=== PATIENT | male | born 1935 | race Caucasian/White ===

== ENCOUNTER 2018-04-14 11:56 | Outpatient (CLI) | payer MEDICARE, SELFPAY ==
--- NOTE | 2018-04-14 11:25 | DI.RAD_ITS ---
SYMPTOMS/DIAGNOSIS: COUGH, H/O ASTHMA, R05 CHEST X-RAY, PA AND LATERAL: Comparison is 04/06/13. The heart size and pulmonary vasculature are within normal limits. The lungs are clear and well expanded. No effusions or pneumothoraces are identified. Degenerative changes are seen in the spine. IMPRESSION: No acute pulmonary process.
== END 2018-04-14 12:16 ==
PROVIDERS: PCP Internal Medicine; Visit Provider Internal Medicine
DX: R05 Cough (principal); Z87.09 Personal history of other diseases of the respiratory system
CPT/HCPCS: 71046

== ENCOUNTER 2018-05-01 01:53 | Outpatient (CLI) | payer MEDICARE, SELFPAY ==
--- NOTE | 2018-05-01 | PFT_ITS ---
PULMONARY FUNCTION TEST REPORT Patient identification [facility] [place] DATE OF 1935 DATE OF SERVICE 05/01/2018 REQUESTING PROVIDER Rudy Kapadia M.D. INTERPRETATION OF STUDY Spirometry shows mild obstructive airways disease with significant bronchodilator response. LUNG VOLUMES - Lung volumes show no evidence of restriction. DIFFUSION CAPACITY- Mildly reduced even when corrected to alveolar volume. AIRWAY RESISTANCE - Normal. IMPRESSION Mild obstructive airways disease with significant bronchodilator response. This is associated with mild diffusion defect. It is noteworthy that the pre bronchodilator expiratory effort was poor. When this study was compared to previous one from 09/15/2013, the patient has a 180 cc improvement in FVC and stable FEV1. Jessica Melo M.D. MOUNA/reji T 05/07/2018
[2018-05-01] MEDS: Inhaler, Assist Device 1 EACH MC (13:45)
[2018-05-01] MEDS: Albuterol HFA 18 GM 200 PUFF INH IH (13:46)
== END 2018-05-01 02:13 ==
PROVIDERS: PCP Internal Medicine; Visit Provider Internal Medicine
DX: R05 Cough (principal); J45.909 Unspecified asthma, uncomplicated
CPT/HCPCS: 94060; 94150; 94726; 94729

== ENCOUNTER 2020-08-15 15:46 | Outpatient (REF) | payer MEDICARE, SELFPAY ==
[2020-08-15 20:52] LABS: NT-proBNP 114 pg/mL (<300)
== END 2020-08-15 15:47 | disposition home or self-care (01) ==
LOC: NCHCN 15:46
PROVIDERS: PCP Internal Medicine; Visit Provider Internal Medicine
DX: R06.09 Other forms of dyspnea (principal)
CPT/HCPCS: 83880

== ENCOUNTER 2021-10-08 17:50 | Outpatient (REF) | payer MEDICARE, SELFPAY ==
[2021-10-08 16:49] LABS: Abs Immature Grans 0.06 10^3/uL (0.0-0.06); Absolute Basophil Count 0.02 10^3/uL (0.0-0.2); Absolute Eosinophil Count 0.16 10^3/uL (0.0-0.7); Absolute Lymphocyte Count 0.95 10^3/uL (1.2-3.4); Absolute Monocyte Count 0.96 10^3/uL (0.1-0.8); Absolute Neutrophil Count 5.84 10^3/uL (1.2-6.7); Basophils % 0.3; HCT 34.9 % (40.0-50.0); HGB 11.1 g/dL (13.5-17.5); Immature Grans % 0.8; Lymphocytes % 11.9; MCHC 31.8 % (32.0-36.0); MCV 98 fL (80-95); MPV 9.5 fL (8.0-11.0); Platelet Count 217 10^3/uL (130-400); RBC 3.58 10^6/uL (4.36-5.78); RDW 13.6 % (11.8-14.1); WBC 7.99 10^3/uL (4.4-10.8)
[2021-10-08 16:54] LABS: Anion Gap 11.1 mmol/L (3-11); BUN 20 mg/dL (7-18); CO2 25.9 mmol/L (21.0-32.0); Calcium 8.3 mg/dL (8.5-10.1); Chloride 106 mmol/L (98-107); Glucose 95 mg/dL (74-106); NT-proBNP 2604 pg/mL (<300); Potassium 4.2 mmol/L (3.5-5.1); Sodium 143 mmol/L (136-145)
[2021-10-08 17:06] LABS: Calculated LDL 59 mg/dL (<100); Cholesterol 108 mg/dL (<200); HDL Cholesterol 34 mg/dL (40-60); Triglyceride 75 mg/dL (<150)
== END 2021-10-08 17:51 | disposition home or self-care (01) ==
LOC: NCHCN 17:50
PROVIDERS: PCP Internal Medicine; Visit Provider Family Medicine
DX: I50.9 Heart failure, unspecified (principal)
CPT/HCPCS: 80048; 80061; 83880; 85025

== ENCOUNTER 2023-12-16 13:34 | Outpatient (REF) | payer MEDICARE, SELFPAY ==
--- OUTSIDE RECORDS SUMMARY | 2023-12-16 13:37 | XMS_ITS | Clinical Summary ---
Author Organization [facility] Address [address] [place] [address] Care Team Providers Care Pbx Wire Chief Name Role Phone Rudy Kapadia MD Primary Care Provider [phone] Social History Tobacco Use Types Packs/Day Years Used Date Smoking Tobacco: Never Assessed Sex and Gender Information Value Date Recorded Sex Assigned at Not on file Gender Identity Not on file Sexual Orientation Not on file Plan of Treatment Health Maintenance Due Date Last Done Comments RSV Immunization ( o r 60+ Years) (1 - 1-dose 60+ series) 1997 Fall Risk Screening 2002 COVID-19 Vaccine (2022- season) 2022 Care Teams Pbx Wire Chief Relationship Specialty Start Date End Date Rudy Kapadia MD [address] [place] [id number] PCP - General 08/26/11
--- OUTSIDE RECORDS SUMMARY | 2023-12-16 13:37 | XMS_ITS | Data Portability ---
Author Organization [facility] Address [place] [address] Assessment No assessment recorded. Plan of Treatment Reminders Order Date Submit Date Provider Last Modified By Organization Details Last Modified Time Details Appointments Follow Up 2023 12:10P M Not available Not available Not available Office Visit 2024 11:50A M Not available Not available Not available Lab None recorded. Referral None recorded. Procedures None recorded. Surgeries None recorded. Imaging None recorded. Medication Orders furosemid e 40 mg tablet 2022 023 [facility] [address] [place], [address], 02/24/2023 15:44:02 metoprolo l succinate ER 25 mg tablet,ex tended release 24 hr 2022 023 [facility] [address], [address] [place], [address], 02/24/2023 10:48:29 valacyclo vir 1 gram tablet 2023 024 [facility] [address], [address] [place], [address], 12/16/2023 11:49:40 Augmentin 875 mg-125 mg tablet [email or web address] [place] [address] Pharmacy [address] [place], [address], 06/11/2023 14:39:12 Patient TargetsNo targets recorded. Patient InstructionsNo instructions recorded. Reason for Referral None Reported. Results Created Date Observation Date Name Description Value Unit Range Abnormal Flag Note LastModifiedBy Organization Detail LastModifiedTime 12/08/1904/14/2018 imagi ng/di agnos tic resul t No observ ation record ed. Not Available 12/07 00:16:23 12/08/19 24 05/21/2022 imagi ng/di agnos tic resul t No observ ation record ed. Not Available 12/07 00:16:24 12/08/19 24 12/11/2021 imagi ng/di agnos tic resul t No observ ation record ed. Not Available 12/07 00:17:41 12/08/19 24 03/11/2022 imagi ng/di agnos tic resul t No observ ation record ed. Not Available 12/07 00:17:46 12/08/19 24 09/21/2021 imagi ng/di agnos tic resul t No observ ation record ed. Not Available 12/07 00:17:51 12/08/19 24 09/13/2020 US, sully x, suellen s, nilam rodriguezy No observ ation record ed. Not Available 12/07 00:18:38 12/08/19 24 09/14/2022 XR, wrist No observ ation record ed. Not Available 12/07 00:18:39 12/08/19 24 01/02/2022 XR, chest No observ ation record ed. Not Available 12/07 00:18:40 12/08/19 24 05/21/2022 CT, abdom en + pelvi s No observ ation record ed. Not Available 12/07 00:18:42 Result Notes None recorded. Problems Name Problem SNOMED Code Status Onset Date Resolution Date Notes Provider Name and Address Organization Details Recorded Time Osteoart hritis of knee 105979777 [facility] Sleep apnea 22467469 Active 2008 [facility] 4 17:54:48 Atherosc lerosis of coronary artery without angina pectoris 13860229932 4103 Active 2004 NSTEMI 10/12 DEBBIE COLLINS MD [address], [place], [address] , [facility] 3 15:35:47 Mantle cell lymphoma 451925826 Active 2011 [facility] monitori MD [address], [place], [address] , [facility] 4 11:51:11 Open-ang le glaucoma 87223556 Active 2013 Trabecul [facility]plasty 07[facility]05 [facility] 4 17:56[facility]24 Traumati c or non-trau matic injury 903487173 Completed 201410/24/2014 Problem Code: T14.8; Problem Code Type: ICD-10; Not Available [facility] 3 04:17:00 Bilatera l hearing loss 10478992 Active 2015 [facility] 4 17:53:55 Benign prostati c hyperpla rc 923430211 Active 2017 [facility] 4 17:53:42 Insect bite Completed 202011/11/2020 Not Available [facility] 3 04:17:01 General examinat ion of patient Active 2020 [facility] 4 17:55:08 Chronic diastoli c heart failure 133018583 Active 2021 [facility] 4 17:55:29 Hypertro phic conditio n of skin 33322390 Completed 202101/06/2022 Problem Code: L91.8; Problem Code Type: ICD-10; Not Available [facility] 3 04:17:01 Gastroes ophageal reflux disease without esophagi tis 831320337 Active 2021 [facility] 4 17:55:14 Prosthet ic heart valve in situ 193657566 Active 2022 tissue for [facility] 4 17:57:10 Dysphagi a 18215743 Active 2022 [facility] 4 17:55:21 Hyperlip idemia 12555712 Active 2022 [facility] 4 17:55:03 Spinal stenosis of lumbar region 15157052 Active 2022 [facility] 4 17:57:40 Hip joint prosthes is present 485084262 Active 2022 [facility] 4 17:55:39 Uncompli cated mild persiste nt asthma 253730572 Completed 201811/30/2019 Problem Code: J45.30; Problem Code Type: ICD-10; Not Available [facility] 3 04:17:02 Pain of left lower leg 47602877768 9101 Completed 202012/01/2020 Problem Code: M79.662; Problem Code Type: ICD-10; Not Available [facility] 3 04:17:03 History of musculos keletal disease 255455334 Completed 201512/01/2020 Not Available [facility] 3 04:17:03 Long-ter m current use of antibiot ic 120118465 Completed 201010/26/2021 Problem Code: Z79.2; Problem Code Type: ICD-10; Not Available [facility] 3 04:17:03 Epidermo id cyst of skin 095654301 Completed 201910/26/2021 Problem Code: L72.3; Problem Code Type: ICD-10; Not Available [facility] 3 04:17:03 Methicil kathryn resistan t Staphylo coccus aureus infectio n 526980076 Completed 200510/21/2016 Problem Code: 041.12; Problem Code Type: ICD-9; Not Available [facility] 3 04:17:03 Diarrhea 77660829 Completed 201811/30/2019 Problem Code: R19.7; Problem Code Type: ICD-10; Not Available [facility] 3 04:17:04 Benign prostati c hyperpla rc 755770193 Completed 200412/18/2022 [facility] 4 17:53:42 Epidermo id cyst 889164100 Completed 202107/22/2022 Problem Code: L72.0; Problem Code Type: ICD-10; Not Available [facility] 3 04:17:04 Pain of right shoulder joint 33494157675 422386 Completed 201411/20/2017 Problem Code: M25.511; Problem Code Type: ICD-10; Not Available [facility] 3 04:17:04 Osteoart hritis 625443930 Completed 200412/18/2022 Not Available [facility] 3 04:17:04 Rupture of rotator cuff of right shoulder 35670225802 583483 Completed 201510/26/2021 Problem Code: M75.101; Problem Code Type: ICD-10; Not Available [facility] 3 04:17:05 Benign neoplasm of colon 66234866 Completed 201312/18/2022 Problem Code: D12.6; Problem Code Type: ICD-10; Not Available [facility] 3 04:17:05 History of polyp of colon 804173449 Completed 201312/07/2021 Problem Code: Z86.010; Problem Code Type: ICD-10; Not Available [facility] 3 04:17:05 Shoulder joint pain 094655298 Completed 201412/18/2022 Problem Code: 719.41; Problem Code Type: ICD-9; Not Available [facility] 3 04:17:05 Screenin g for hearing loss Completed 202012/01/2020 Not Available [facility] 3 04:17:06 Cough 58597948 Completed 201811/24/2018 Problem Code: R05; Problem Code Type: ICD-10; Not Available [facility] 3 04:17:06 Allergic contact dermatit is caused by plant material 13277252319 055510 Completed 201411/03/2014 Problem Code: L23.7; Problem Code Type: ICD-10; Not Available [facility] 3 04:17:07 Carpal tunnel syndrome of left wrist 86137058371 9102 Completed 201507/22/2022 Problem Code: G56.02; Problem Code Type: ICD-10; Not Available [facility] 3 04:17:07 Dyspnea 836374561 Completed 202012/01/2020 Problem Code: R06.09; Problem Code Type: ICD-10; Not Available [facility] 3 04:17:08 Hip joint prosthes is present 787025631 Completed 202107/22/2022 Problem Code: Z96.642; Problem Code Type: ICD-10; [facility] 4 17:55:40 Idiopath ic peripher al neuropat hy 85253490 Completed 201212/18/2022 Problem Code: 356.9; Problem Code Type: ICD-9; Not Available [facility] 3 04:17:08 Fitting of hearing aid Completed 202012/01/2020 Problem Code: Z46.1; Problem Code Type: ICD-10; Not Available [facility] 3 04:17:08 Pre-surg keri evaluati on Completed 201911/30/2019 Problem Code: Z01.818; Problem Code Type: ICD-10; Not Available [facility] 3 04:17:09 Cholelit hiasis without obstruct ion 05764364 Completed 202107/22/2022 Problem Code: K80.20; Problem Code Type: ICD-10; Not Available [facility] 3 04:17:09 Coronary arterios clerosis in [place] artery 79804220898 07 Completed 200412/18/2022 Problem Code: 414.01; Problem Code Type: ICD-9; Not Available [facility] 3 04:17:09 Bilatera l myopia of eyes 06107518656 9109 Completed 202207/22/2022 Problem Code: H52.13; Problem Code Type: ICD-10; Not Available [facility] 3 04:17:10 Heart failure 40151705 Completed 202112/18/2022 Problem Code: I50.9; Problem Code Type: ICD-10; Not Available [facility] 3 04:17:10 Impacted cerumen of bilatera l ears 95199389987 63312 Completed 202012/01/2020 Problem Code: H61.23; Problem Code Type: ICD-10; Not Available [facility] 3 04:17:10 Localize d edema 468598558 Completed 202012/01/2020 Problem Code: R60.0; Problem Code Type: ICD-10; Not Available [facility] 3 04:17:11 Idiopath ic osteoart hritis 045481183 Completed 201510/26/2021 Problem Code: M19.019; Problem Code Type: ICD-10; Not Available [facility] 3 04:17:11 Mixed hyperlip idemia 954250668 Active [address], [place] [address] , [facility] 3 15:33:40 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 left infraorb ial MD [address], [place] [address] , [facility] 4 22:51:32 Facial erysipel as 588787644 Completed 202306/15/2023 left infraorb ital MD [address], [place] [address] , [facility] 4 22:52:37 Facial erysipel as 045774718 Completed 202306/15/[address], [place] [address] , [facility] 4 22:52:37 Iron deficien cy anemia 81035811 Active [address], [place] [address] , [facility] 12:01:39 Problem Notes None recorded. Procedures Surgical History None recorded. Imaging Results Imaging Date Name Status LastModified by Organiz ation Details LastModified Time 04/14/2018 imaging/diagno stic result completed Information not available 12/08/2023 00:16:23 05/21/2022 imaging/diagno stic result completed Information not available 12/08/2023 00:16:24 12/11/2021 imaging/diagno stic result completed Information not available 12/08/2023 00:17:41 03/11/2022 imaging/diagno stic result completed Information not available 12/08/2023 00:17:46 09/21/2021 imaging/diagno stic result completed Information not available 12/08/2023 00:17:51 09/13/2020 US, duplex, venous, extremity completed Information not available 12/08/2023 00:18:38 09/14/2022 XR, wrist completed Information no t available 12/08/2023 00:18:39 01/02/2022 XR, chest completed Information no t available 12/08/2023 00:18:40 05/21/2022 CT, abdomen + pelvis completed Information not available 12/08/2023 00:18:42 Procedure Notes None recorded. Medical Equipment None Reported. Allergies Allergen ID Allergen Name Allergen Category Reaction Reaction Severity Criticality Documentation Date Start Date Code Code System Note Provider Name and Address Organization Details Recorded Time 87686 Rifadin medicatio n other severe Not available 06/04/20232005 11500 3 RxNorm if used with vanco mycin Kunal [facility] 17:52:20 52708 vancomyci n medicatio n other severe Not available 06/04/20232004 92996 RxNorm if used w/rif ampin , dostr oys WBC's and paren t cells [facility] 17:53[facility]01 Medications Name Sig Start Date Stop Date Status Note LastModified by Organization Details LastModified Time Prescript ion - Renewal active refill Not Available Not Available Not Available amoxicill in 500 mg capsule 4 capsule by mouth single dose as needed for Dental Procedur es active Not Available Not Available No t Available furosemid e 40 mg tablet TAKE 1 TABLET BY MOUTH ONCE DAILY IN THE MORNING active Not Available Not Available No t Available latanopro st 0.005 % eye drops 10/21 completed outside provider Not Available Not Available Not Available Miralax 17 gram/dose oral powder 1 capful as needed for constipa tion in 4-8 ounces of fluid. 10/[address] [facility] Discharg e summary Not Available Not Available Not Available atorvasta tin 80 mg tablet Take 1 tablet by mouth once a day 11/26 completed Not Available Not Available Not Available acetamino phen 325 mg tablet Take 650 mg every 4 hours by mouth as needed 07/16 completed Not Available Not Available Not Available Protonix 40 mg tablet,de layed release Take 1 tablet by mouth once a day 02/24 completed Not Available Not Available Not Available doxycycli ne hyclate 100 mg capsule Take 1 capsule by mouth once a day 02/24 completed Not Available Not Available Not Available atorvasta tin 10 mg tablet take 1/2 tablet daily active Not Available Not Available No t Available azithromy aurora 250 mg tablet TAB daily 06/19 completed Not Available Not Available Not Available amiodaron e 200 mg tablet 1 tablet by mouth twice a day 01/01 completed Not Available Not Available Not Available valacyclo vir 1 gram tablet Take 1 tablet every 12 hours by oral route for 5 days. 12/15 completed Not Available Not Available Not Available Flonase 50 mcg/DOSE nasal inhaler 2 SPRAY QD 10/16 completed Not Available Not Available Not Available cyanocoba sunil (vit B-12) 1,000 mcg tablet take 1 tablet by mouth once daily active Not Available Not Available No t Available clopidogr el 75 mg tablet Take 1 tablet by mouth once a day Take 1 tablet by mouth daily 12/04 completed Not Available Not Available Not Available acyclovir 400 mg tablet 1 tab twice daily 05/01 completed Not Available Not Available Not Available Zyvox 100 mg/5 mL oral suspensio n Infuse 600 mg every 12 hours by IV route 10/08 completed Not Available Not Available Not Available Tessalon Perles 100 mg capsule 1 CAP three times daily 05/07 completed Not Available Not Available Not Available potassium chloride ER 20 mEq tablet,ex tended release(p art/cryst ) 1 tablet by mouth once a day active Not Available Not Available No t Available calcium 500 mg (as calcium carbonate 1,250 mg) tablet Take 1 tablet by mouth daily active Not Available Not Available No t Available tamsulosi n 0.4 mg capsule 1 capsule by mouth once a day active Not Available Not Available No t Available Tums Ultra 400 mg (as calcium carbonate 1,000 mg) chewable tablet 1 daily 05/24 completed Not Available Not Available Not Available Mag 64 64 mg tablet,de layed release take 1 tablet by mouth once daily active Not Available Not Available No t Available metoprolo l tartrate 50 mg tablet Take half a tablet every 6 hours active Not Available Not Available No t Available docusate sodium 100 mg capsule Take 1 tablet by mouth twice daily as needed 10/08 completed Not Available Not Available Not Available gabapenti n 300 mg capsule 1 by mouth once a day for nerve pain 12/[address] [facility] discharg e summary Not Available Not Available Not Available folic acid 1 mg tablet 1 by mouth once a day active per [facility] Discharg e summary Not Available Not Available Not Available allopurin ol 300 mg tablet 1 tab daily 10/19 completed Not Available Not Available Not Available bisacodyl 5 mg tablet,de layed release Take 1 tablet by mouth once daily as needed 10/08 completed Not Available Not Available Not Available aspirin 81 mg tablet 1tab daily 2012 active Not Available Not Available Not Avai lable furosemid e 20 mg tablet 1 tablet by mouth once a day for 14 days per [facility] Summary 07/22 completed Not Available Not Available Not Available metoprolo l succinate ER 25 mg tablet,ex tended release 24 hr TAKE 1/2 (ONE-ROSSANA F) TABLET BY MOUTH TWICE DAILY active Not Available Not Available No t Available Ativan 0.5 mg tablet 1-2 tabs q4h 10/16 completed Not Available Not Available Not Available levofloxa aurora 750 mg tablet 1 tab daily 10/19 completed Not Available Not Available Not Available timolol maleate 0.5 % eye drops 10/21 completed outside provider Not Available Not Available Not Available ondansetr on 4 mg disintegr ating tablet 1 tablet every 8 hours as needed 10/08 completed Not Available Not Available Not Available lisinopri l 2.5 mg tablet Take 1 tablet by mouth once a day 1 tablet by mouth daily 12/04 completed Not Available Not Available Not Available Diflucan 200 mg tablet 1 tab daily 10/19 completed Not Available Not Available Not Available doxycycli ne hyclate 100 mg tablet 1 cap qd 04/05 completed Not Available Not Available Not Available finasteri de 5 mg tablet TAKE 1 TABLET BY MOUTH AT NIGHT active Not Available Not Available No t Available brimonidi ne 0.15 % eye drops 1 drop twice daily 10/21 completed outside provider Not Available Not Available Not Available loratadin e 10 mg tablet 1 qd 10/16 completed Not Available Not Available Not Available amoxicill in 875 mg-potass ium clavulana te 125 mg tablet Take 1 tablet every 12 hours by oral route for 7 days. 06/10 completed Not Available Not Available Not Available Adult Low Dose Aspirin 81 mg tablet,de layed release 2012 active Not Available Not Available Not Avai lable calcium-m agnesium tablet qd 2016 active Not Available Not Available Not Avai lable Glucosami ne-Chondr otin 250 mg-200 mg tablet 2 tabs daily 2011 active Not Available Not Available Not Avai lable Vitamin D3 25 mcg (1,000 unit) capsule 1 once a [address] [facility] discharg e summary Not Available Not Available Not Available potassium chloride ER 10 mEq tablet,ex tended release(p art/cryst ) take 1 tablet by mouth once daily 02/24 completed Not Available Not Available Not Available metoprolo l tartrate 25 mg tablet take 1 tablet by mouth twice a day 02/24 completed Not Available Not Available Not Available Albuterol Sulfate HFA 90 mcg/Actua tion aerosol inhaler 2 PUFFS Q 4-6 hours 11/03 completed Not Available Not Available Not Available Flovent HFA 110 mcg/actua tion aerosol inhaler 2 PUFFS twice daily 12/13 completed Not Available Not Available Not Available Folgard RX 2.2 mg-25 mg-1 mg tablet 1 daily 2010 active Not Available Not Available Not Avai lable Tylenol-C odeine #3 1TAB every six hours 04/11 completed Not Available Not Available Not Available Calcium/M agnesium/ Zinc 1 tab daily 04/10 completed Not Available Not Available Not Available Advair HFA 115 mcg-21 mcg/actua tion aerosol inhaler Inhale 2 puffs by mouth twice daily 11/24 completed Not Available Not Available Not Available cholecalc iferol (vitamin D3) 25 mcg (1,000 unit) tablet 1 tablet by mouth once a day 2011 active Not Available Not Available Not Avai lable Symbicort 160 mcg-4.5 mcg/actua tion HFA aerosol inhaler 1 inh BID 04/10 completed Not Available Not Available Not Available FeroSul 325 mg (65 mg iron) tablet take 1 tablet by mouth once daily active Not Available Not Available No t Available omeprazol e 20 mg tablet,de layed release 1 qd 03/08 completed Not Available Not Available Not Available glucosami ne-msm-ch ondroit-h rb 149-hyalu r 500 mg-500 mg-66.7 mg tablet 2 tabs daily 2011 active Not Available Not Available Not Avai lable Guaifenes in AC 10 mg-100 mg/5 mL oral syrup 1-2 tsp q 4-6 hours 09/13 completed Not Available Not Available Not Available Gio-Mag 1 tablet PO QD 2016 active Not Available Not Available Not Avai lable glucosami ne 750 mg-chondr oitin-msm no1 625 mg-C 30 mg-mello 1 mg tablet 2 tablet once a day 10/02 completed Not Available Not Available Not Available Centrum Silver 400 mcg-250 mcg chewable tablet 1 tablet once a day active Not Available Not Available No t Available magnesium 400 mg (as magnesium oxide) capsule 1 tab daily 10/21 completed Not Available Not Available Not Available multivita min with folic acid 400 mcg tablet 1 tablet by mouth once a day 01/01 completed Not Available Not Available Not Available Eliquis 2.5 mg tablet 1 by mouth twice a day 09/13 completed s/p tissue MVR and AVR replacem ent on 08/2022 until 12/20/22 Not Available Not Available Not Available Jardiance 10 mg tablet 1 once a day 09/13 completed [facility] cardiol Not Available Not Available Not Available Gio-Mag Complex 1 tablet by mouth once a day 10/02 completed Not Available Not Available Not Available Vitals Date Recorded Body height Body mass index (BMI) Body weight Body temperature Systolic blood pressure Diastolic blood pressure Provider Name and Address Organization Details Last Updated DateTime 3 177.165 cm 25.9 kg/m2 33564.0 3 g 97.1 [degF] 124 mm[Hg] 80 mm[Hg] [facility] 3 10:10:45 Date Recorded Body height Body temperature Heart rate Oxygen saturation Oxygen saturation in Arterial blood by Pulse oximetry Systolic blood pressure Diastolic blood pressure Provider Name and Address Organization Details Last Updated DateTime 4 177.165 cm 98 [degF] 70 /min 97 % 97 % 110 mm[Hg] 70 mm[Hg] [facility] 4 13:42:39 Date Recorded Body height Body mass index (BMI) Body weight Body temperature Oxygen saturation Oxygen saturation in Arterial blood by Pulse oximetry Heart rate Systolic blood pressure Diastolic blood pressure Provider Name and Address Organization Details Last Updated DateTime 4 177.165 cm 25.6 kg/m2 89331.8 5 g 97.1 [degF] 97 % 97 % 74 /min 126 mm[Hg] 82 mm[Hg] [facility] 14:42:34 Date Recorded Body height Body mass index (BMI) Body weight Body temperature Oxygen saturation Oxygen saturation in Arterial blood by Pulse oximetry Heart rate Systolic blood pressure Diastolic blood pressure Provider Name and Address Organization Details Last Updated DateTime 177.17 cm 26.4 kg/m2 05926.4 g 98 [degF] 98 % 98 % 74 /min 136 mm[Hg] 78 mm[Hg] THIAGO SOFIA MA [facility] 11:21:55 Social History Question Answer Notes LastModified by Organizat ion Details LastModified Time Tobacco Smoking Status Never Smoker [facility] 12/16/2023 13:32:13 What Was The Date Of Your Most Recent Tobacco Screening? 12/16/2023 Information not available 12/16/2023 Has Tobacco Cessation Counseling Been Provided? No Information not available 12/16/2023 Do You Or Have You Ever Used Any Other Forms Of Tobacco Or Nicotine? No Information not available 12/16/2023 Sex: Male Functional Status None recorded. Mental Status None recorded. Family History Relationship Description Onset Age of this Age Resolved Age Notes LastModified by Organization Details LastModified Time Maternal Grandfather Family history of Arthritis linpui.[email or web address] Not available 2022 04:00:50 Notes:*Problem: father decea sed age 50 CAD. Mother age 27 blood poisoning. *Procedure Description: Family History of Coronary Heart Disease*Relative: Father Medical History No medical history recorded. Immunizations Vaccine Type Date Status Provider Name and Address Organization Details Recorded Time COVID-19, mRNA, LNP-S, PF, lilly-sucrose, 30 mcg/0.3 mL 12/16/2023 completed [facility] 12/16/2023 13:30:18 Influenza, high-dose, quadrivalent, PF 02/24/2023 completed DEBBIE COLLINS MD [address], [place], [address], [facility] 02/24/2023 15:42:12 COVID-19, mRNA, LNP-S, PF, lilly-sucrose, 30 mcg/0.3 mL 02/24/2023 completed DEBBIE COLLINS MD [address], [place], [address], [facility] 02/24/2023 15:42:12 Td (adult), 2 Lf tetanus toxoid, preservative free, adsorbed 11/14/2016 completed Not Available [facility] 01/31/2023 05:48:19 zoster live 01/28/2008 completed Not Available [facility] 01/31/2023 05:48:19 Pneumococcal conjugate PCV 13 04/10/2015 completed Not Available [facility] 01/31/2023 05:48:19 Influenza, high-dose, trivalent, PF 03/13/2018 completed Not Available [facility] 01/31/2023 05:48:20 Td(adult) unspecified formulation 09/05/2004 completed Not Available [facility] 01/31/2023 05:48:20 Td(adult) unspecified formulation 02/02/2007 completed Not Available [facility] 01/31/2023 05:48:20 Influenza, split virus, trivalent, preservative 12/07/2014 completed Not Available [facility] 01/31/2023 05:48:20 Influenza, split virus, quadrivalent, preservative 12/27/2016 completed Not Available [facility] 01/31/2023 05:48:20 Influenza, high-dose, quadrivalent, PF 12/07/2021 completed Not Available [facility] 01/31/2023 05:48:20 COVID-19, mRNA, LNP-S, PF, 100 mcg/0.5mL dose or 50 mcg/0.25mL dose 05/18/2020 completed Not Available [facility] 01/31/2023 05:48:21 COVID-19, mRNA, LNP-S, PF, 100 mcg/0.5mL dose or 50 mcg/0.25mL dose 06/16/2020 completed Not Available [facility] 01/31/2023 05:48:21 COVID-19, mRNA, LNP-S, PF, 100 mcg/0.5mL dose or 50 mcg/0.25mL dose 07/04/2021 completed Not Available [facility] 01/31/2023 05:48:21 COVID-19, mRNA, LNP-S, PF, 100 mcg/0.5mL dose or 50 mcg/0.25mL dose 01/24/2021 completed Not Available [facility] 01/31/2023 05:48:21 SARS-COV-2 (COVID-19) vaccine, UNSPECIFIED 07/04/2021 completed Not Available [facility] 01/31/2023 05:48:21 pneumococcal polysaccharide PPV23 09/05/2004 completed Not Available [facility] 2022 05:48:21 influenza, unspecified formulation 01/09/2021 completed Not Available [facility] 01/31/2023 05:48:21 influenza, unspecified formulation 01/15/2020 completed Not Available [facility] 01/31/2023 05:48:22 influenza, unspecified formulation 02/11/2019 completed Not Available [facility] 01/31/2023 05:48:22 Past Encounters Encounter ID Performer Location Encounter Start Date Encounter Closed Date Diagnosis/Indication Diagnosis SNOMED-CT Code Diagnosis ICD10 Code [id number] DEBBIE COLLINS MD [address] [address] 02/24/2023 10:02:33 02/24/2023 11:00:11 Atrial fibrillation 40469308 I48.91 Active or passive immunization 576929546 Z23 Atheroscle rosis of coronary artery without angina pectoris 4434047622 41794 I25.10 Chronic di astolic heart failure 524099984 I50.32 Hip joint prosthesis present 871783071 Z96.046 [id number] DEBBIE COLLINS MD [address] [address] 05/08/2023 13:25:49 05/08/2023 14:10:26 Viral pharyngitis 8847524 B34.9 [id number] DEBBIE COLLINS MD [address] [address] 05/22/2023 09:53:49 05/22/2023 10:03:14 Facial erysipelas 077257758 A46 Herpes zoster 5220393 B0 2.9 [id number] DEBBIE COLLINS MD [address] [address] 06/11/2023 14:10:30 06/11/2023 15:10:00 Atherosclerosis of coronary artery without angina pectoris 6792560446 70652 I25.110 Chronic di astolic heart failure 393753447 I50.32 Facial erysipelas 391412 002 A46 Secondary peripheral neuropathy 700140 G62.89 [id number] NIKKI RODRÍGUEZ [address] [address] 12/16/2023 11:07:00 12/16/2023 12:45:51 General examination of patient 470956240 Z00.129 Atheroscle rosis of coronary artery without angina pectoris 3430098620 47850 I25.110 Chronic di astolic heart failure 862801984 I50.32 Gastroesop hageal reflux disease without esophagitis 987851902 K21.9 Mixed hyperlipidemia 267 982802 E78.2 Mantle cell lymphoma 443 865359 C83.10 Spinal marielle nosis of lumbar region 21820761 M48.061 Iron defic iency anemia 44235131 D50.9 Active or passive immunization 898236006 Z23 Body mass index 25-29 - overweight 064626591 Z68.26 Health Concerns Section Related Observation LastModified by Organization Detai ls LastModified Time None Recorded Concern Status LastModified by Organization Details LastModified Time None Recorded Advance Directives Directive None Recorded Payers Encounter Date Sequence Insurance Name Policy Number Policy Peralta Covered Member ID Peralta Member ID Guarantor Name 02/24/2023 1 [place] [employer] Tk Chapin [id number] Tk Chapin 02/24/2023 2 [employer] OPTIONS (MEDICARE SUPPLEMENT) Tk Chapin [id number] Tk Chapin 05/08/2023 1 [place] [employer] Tk Chapin [id number] Tk Chapin 05/08/2023 2 [employer] OPTIONS (MEDICARE SUPPLEMENT) Tk Chapin [id number] Tk Chapin 05/22/2023 1 [place] [facility] Tk Chapin [id number] Tk Chapin 05/22/2023 2 [employer] OPTIONS (MEDICARE SUPPLEMENT) Tk Chapin [id number] Tk Chapin 06/11/2023 1 [place] [facility] G[facility]ERNMENT SERVICES Tk Chapin [id number] Tk Chapin 06/11/2023 2 [employer] OPTIONS (MEDICARE SUPPLEMENT) Tk Chapin [id number] Tk Chapin Notes Date Note Type Note Provider Name and Address Organization Details Recorded Time 02/24/2023 text/html HPI Notes: Сергей pope here for follow-up for his chronic issues include atrial fibrillation, hypertension, recovery from recent hip fracture, heart failure. Overall he is feeling quite well. He is back on his feet, does use a cane. He states he ran out of his furosemide some weeks ago and he notices his leg edema is increasing. Did not call inquiring about it. Does need refill his metoprolol but otherwise things are up-to-date. 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 Hips doing well, did complete physical therapy MD [address], [place], [address], [facility]. 02/24/2023 15:45:06 05/08/2023 text/html HPI Notes: Сергей pope in because of some concerns of a spot right posterior throat that is tender since last night. He is just finishing up a course of Augmentin for an ER visit diagnosed with strep throat. Symptoms he had at that time including fevers myalgias fatigue are all gone. He is having some loose stool since antibiotic no other complaints. No longer having congestion coughing no GI symptoms other than the loose stools MD [address], [place], [address], [facility]. 05/08/2023 14:11:58 05/22/2023 text/html HPI Notes: Сергей pope comes in concerned about some redness and swelling below his left eye. Began yesterday. I think just as a cause or injury. Vision is normal. He has had a bit of URI recently, was treated with Augmentin diffuse ago through express care. Did not feel he was improved. He had chickenpox as a child, has been vaccinated. No headache visual changes hearing changes or ear pain. MD [address], [place], [address], [facility]. 05/25/2023 16:04:17 06/11/2023 text/html HPI Notes: Сергей nt here for routine follow-up for his chronic issues. His recent left eye erythema has improved. No spread or discomfort. Was treated for presumptive varicella addition to likely cellulitis. In hindsight I think it was just cellulitis. Did restart his furosemide 40 mg daily, his peripheral edema is much improved. Strength is gradually proving, try to stay active. Still a bit unsteady on his feet. DEBBIE COLLINS MD [address], [place], [address], [facility]. 06/15/2023 22:53:16
--- OUTSIDE RECORDS SUMMARY | 2023-12-16 13:37 | XMS_ITS | Encounter Summary ---
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 Role Phone Unknown, Provider Primary Care Provider Encounter Details Date Type Department Care Team (Late st Contact Info) Description 08/22/2011 Results Only [facility] Laboratory Services - [facility] ([facility]) [address], [place] [address] Leonard Brown, DO [address] [facility] [address] [place], [place] [address] Social History Tobacco Use Types Packs/Day Years Used Date Smoking Tobacco: Never Assessed Sex and Gender Information Value Date Recorded Sex Assigned at Not on file Gender Identity Not on file Sexual Orientation Not on file documented as of this encounter Plan of Treatment Not on file documented as of this encounter Procedures Procedure Name Priority Date/Time Associated Diagnosis Comments FLOW CYTOMETRY Routine 08/22/2011 14:00 EDT SURGICAL PATHOLOGY Routine 08/22/2011 0:00 EDT documented in this encounter Results * FLOW CYTOMETRY (08/22/2011 14:00 EDT) Pathology Report: FLOW CYTOMETRY REPORT Reports generated via electronic interface contain original data; however they are lacking the format of the original report. Caution should be taken when reading/interpretin g unformatted reports. Name: ? LETICIA VICTOR ? Accession #: ? [id number] : ? 1935 (Age: 76) ??M ?Collect Date: ? 08/22/2011 14:00 Location: ? [facility] ? Receive Date: ? 08/22/2011 21:00 Provider: ?LEONARD BROWN DO Copy to: ?Mazin Bethea MD ? FINAL IMMUNOPHENOTYPIC INTERPRETATION: ? 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 ??See comment. ? COMMENT: ? The results of flow cytometry are those of involvement by a lymphoproliferative disorder of B-cell lineage expressing kappa light chains. The immunophenotypic profile is suggestive of mantle cell lymphoma. ??Correlation of these findings with morphologic and clinical data is essential; please refer to surgical pathology report ([id number]) for morphologic details. ? Document reviewed and electronically signed by: ? BETHEL GREGORY MD Report Date: ??08/28/2011 15:35 By the signature above, the attending physician certifies that he/she has personally conducted an evaluation of the described specimen and rendered or confirmed the above diagnosis. CLINICAL HISTORY: ? The patient is a 76-year-old male with lymphadenopathy. DESCRIPTION: ? The specimen consists of lymph node tissue from which a single cell suspension is prepared. ??Gating is performed using CD45 fluorescence and side scatter. ??Cellular viability (assessed by propidium iodide exclusion) is excellent (99%) among cells with CD45 and side scatter properties typical of lymphocytes and good (90%) among CD45+ events overall. ??Expression of the following markers is tested: CD2, CD3, CD4, CD5, CD7, CD8, CD10, CD11c, CD14, CD16, CD19, CD20, CD23, CD38, CD45, CD56, CD57, FMC-7, HLA-DR, kappa light chain, lambda light chain. ? There is a clonal population of B-lymphocytes accounting for 39% of the lymphocytes. ??The cells comprising this population are positive for CD5, CD19, CD20, FMC-7, dim partial CD38, HLA-DR, and kappa light chains, and they are negative for CD10, CD23, and lambda light chains. By light scatter criteria, the cells are similar in size to normal lymphocytes. ? The remainder of the lymphoid cells are T-lymphocytes (CD2+CD3+CD5+CD7+) with CD4+ and CD8+ subsets represented. ? This test was developed and its performance characteristics determined by the Department of Pathology and Laboratory Medicine, [place], [place] ??It has not been cleared or approved by the U.S. Food and Drug Administration. ?? End of Report ?? [facility] 08/22/2011 14:0 0 EDT 08/22/2011 21:00 EDT Leonard Brown DO PATHOLOGY ORDER TOM[facility] [address] [place] [address] * SURGICAL PATHOLOGY (08/22/2011 0:00 EDT) Pathology Report: SURGICAL PATHOLOGY REPORT Reports generated via electronic interface contain original data; however they are lacking the format of the original report. Caution should be taken when reading/interpreting unformatted reports. Name: ? KAYLEIGHLETICIA Raul ? Accession #: ? [id number] ? : ? 1935 (Age: 76) ??M ?Collect Date: ? 08/22/2011 ? Location: ? [facility] ? Receive Date: ? 08/23/2011 ? Provider: LEONARD BROWN DO Copy to: LUI BERGMAN MD ? Addendum ? Date Ordered: ? 10/21/2011 ? Status: Signed Out ? Date Complete: ? 10/21/2011 ? By: Kathleen Castillo ? Date Reported: ? 10/21/2011 ? Addendum Comment ? This addendum is issued to further clarify the lesion that was reviewed by Dr. Francia Hunter. ? Immunohistochemical reactivity for MIB-1(Ki-67) indicates a high proliferative index (estimated at 80%) which is an adverse prognostic indicator. There is no change in the final diagnosis. ??(Dr. Bethea)/[facility] ?? Document reviewed and electronically signed by: ? Mazin Bethea MD ? Report date: 10/21/2011 By the signature above, the attending physician certifies that he/she has personally conducted a gross and/or microscopic examination of the described specimens and rendered or confirmed the above diagnosis. Final Report Final Pathologic Diagnosis: ? Lymph node, left groin, biopsy: - Non-Hodgkin lymphoma, mantle cell lymphoma. ??See comment. Comment: ? This case has been reviewed by Dr. Francia Hunter in consultation. Immunohistochemical studies, with appropriate positive and negative controls, have been reviewed in this case. ?? Block ?Antibody (Clone) ? Result A1 ?CD20 (Warren) (L26, [facility]) ?diffusely positive in tumor cells ?CD3 (Tcell) (rabbit monoclonal (SP7), [facility]) ? positive in reactive small T-cells ?Cyclin D1 (rabbit monoclonal (clone SP4), [facility]) ? diffusely positive in tumor cell nuclei ?MIB-1 (Ki-67) (rabbit monclonal (SP6), [facility]) ? positive in 80% of tumor cells Flow cytometric analysis ([id number]) domonstrates an immunophenotypic profile in keeping with the above diagnosis. (Dr. Bethea)/dejon NOTE: ??One or more of the reagents used in immunohistochemical testing in this case may not have been cleared or approved by the U.S. Food and Drug Administration (FDA). ??The FDA has determined that such clearance or approval is not necessary. ??These tests are used for clinical purposes. ??They should not be regarded as investigational or for research. ??These reagents' performance characteristics have been determined by [facility]. ??This laboratory is certified under the Clinical Laboratory Improvement Amendments of 1988 (CLIA-88) as qualified to perform high complexity clinical laboratory testing. ? Gross Description: ? Received in formalin labelled [place], Leticia and left groin lymph node is a 1.5 x 1.1 x 0.9 cm, incomplete portion of a pink-stevenson, firm lymph node. ??One side of the node has been previously transected and the remainder of the node is not present with the specimen. ??The specimen is quadrisected and entirely submitted as (A1) and (A2). ??(Brenda Daniel)/[facility] ? Clinical History: ? Lymphadenopathy. ??Concern for lymphoma. ? Specimens Received: ? Left groin lymph node ? Document reviewed and electronically signed by: ? Mazin Bethea MD ? Report ??Date: 08/28/2011 14:57 By the signature above, the attending physician certifies that he/she has personally conducted a gross and/or microscopic examination of the described specimens and rendered or confirmed the above diagnosis. 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
--- OUTSIDE RECORDS SUMMARY | 2023-12-16 13:37 | XMS_ITS | Referral Summary ---
Author Organization [facility] Address [address] [place] [address] Care Team Providers Care Child Life Assistant Name Role Phone Rudy Kapadia MD Primary Care Provider [phone] Social History Tobacco Use Types Packs/Day Years Used Date Smoking Tobacco: Never Assessed Sex and Gender Information Value Date Recorded Sex Assigned at Not on file Gender Identity Not on file Sexual Orientation Not on file Plan of Treatment Not on file Care Teams Child Life Assistant Relationship Specialty Start Date End Date Rudy Kapadia MD [address] [place] [address] PCP - General 08/26/11
[2023-12-16 21:22] LABS: Abs Immature Grans 0.05 10^3/uL (0.0-0.06); Absolute Basophil Count 0.03 10^3/uL (0.0-0.2); Absolute Eosinophil Count 0.16 10^3/uL (0.0-0.7); Absolute Lymphocyte Count 1.41 10^3/uL (1.2-3.4); Absolute Neutrophil Count 5.54 10^3/uL (1.2-6.7); Basophils % 0.4 %; HCT 38.9 % (40.0-50.0); HGB 12.8 g/dL (13.5-17.5); Immature Grans % 0.6 %; Lymphocytes % 17.6 %; MCH 31.8 pg (27.0-33.0); MCHC 32.9 % (32.0-36.0); MCV 97 fL (80-95); Neutrophils % 69.4 %; RBC 4.03 10^6/uL (4.36-5.78); RDW 12.6 % (11.8-14.1); RDW-SD 44.9 fL; WBC 7.99 10^3/uL (4.4-10.8)
[2023-12-16 21:42] LABS: ALT 20 U/L (16-63); AST 23 U/L (15-37); Alkaline Phosphatase 143 U/L (46-116); Anion Gap 9.8 mmol/L (3-11); BUN 22 mg/dL (7-18); Bilirubin, Total 0.74 mg/dL (0.2-1.0); CO2 29.2 mmol/L (21.0-32.0); CREATININE 1.5 mg/dL (0.70-1.30); Calcium 9.4 mg/dL (8.5-10.1); Chloride 102 mmol/L (98-107); Estimated GFR 45.06 (mL/min/1.73m2); Glucose 101 mg/dL (74-106); Potassium 4.6 mmol/L (3.5-5.1); Sodium 141 mmol/L (136-145); Total Protein 6.2 g/dL (6.4-8.2)
[2023-12-16 21:43] LABS: Diff Comment PLT Morph Reviewed; RBC Morphology Normal
[2023-12-16 23:31] LABS: Ferritin 336 ng/mL (26-388)
== END 2023-12-16 13:35 | disposition home or self-care (01) ==
LOC: NCHCN 13:34
PROVIDERS: PCP Internal Medicine; Visit Provider Family Medicine
DX: I50.32 Chronic diastolic (congestive) heart failure (principal); D50.9 Iron deficiency anemia, unspecified
CPT/HCPCS: 80053; 82728; 85025

== ENCOUNTER 2024-06-14 21:53 | Outpatient (REF) | payer MEDICARE, SELFPAY ==
[2024-06-14 21:57] LABS: HCT 41.9 % (40.0-50.0); HGB 13.5 g/dL (13.5-17.5); MCH 31.3 pg (27.0-33.0); MCHC 32.2 % (32.0-36.0); MCV 97 fL (80-95); MPV 10.2 fL (8.0-11.0); Platelet Count 195 10^3/uL (130-400); RBC 4.31 10^6/uL (4.36-5.78); RDW 14.1 % (11.8-14.1); RDW-SD 50.4 fL; WBC 7.78 10^3/uL (4.4-10.8)
[2024-06-14 22:20] LABS: ALT 24 U/L (16-63); AST 24 U/L (15-37); Albumin 3.9 g/dL (3.4-5.0); Alkaline Phosphatase 125 U/L (46-116); Anion Gap 9.2 mmol/L (3-11); BUN 26 mg/dL (7-18); Bilirubin, Total 0.5 mg/dL (0.2-1.0); CO2 26.8 mmol/L (21.0-32.0); CREATININE 1.3 mg/dL (0.70-1.30); Calcium 9.2 mg/dL (8.5-10.1); Chloride 110 mmol/L (98-107); Estimated GFR 53.17 (mL/min/1.73m2); Glucose 97 mg/dL (74-106); Potassium 5.1 mmol/L (3.5-5.1); Sodium 146 mmol/L (136-145); Total Protein 5.8 g/dL (6.4-8.2)
== END 2024-06-14 21:54 | disposition home or self-care (01) ==
LOC: NCHCN 21:53
PROVIDERS: PCP Internal Medicine; Visit Provider Family Medicine
DX: I50.32 Chronic diastolic (congestive) heart failure (principal)
CPT/HCPCS: 80053; 85027